=== PATIENT | female | born 1940 | race Caucasian/White ===

== ENCOUNTER 2017-03-15 14:00 | Emergency (ER) | payer MEDICARE ==
[~2017-03-15] VITALS: Ht 149.9 cm; Wt 72.0 kg
[~2017-03-15 14:00] MED LIST: ERGO2000 PO; GLIP10 PO; METF500T4 PO; NAPR-58 PO
[2017-03-15 14:22] LABS: GLUCOSE,POINT OF CARE 412 MG/DL (70-110)
[2017-03-15 14:51] LABS: BASOPHILS % (AUTO) 0.6 % (0.0-2.0); EOSINOPHILS % (AUTO) 1.1 % (1.0-6.0); HEMATOCRIT 36.7 % (36-46); HEMOGLOBIN 12.7 g/dL (12.0-16.0); LYMPHOCYTES # (AUTO) 1.3 K/uL (1.0-4.8); LYMPHOCYTES % (AUTO) 22.5 % (22.0-44.0); MEAN CORPUSCULAR HEMOGLOBIN 31.9 pg (26.0-34.0); MEAN CORPUSCULAR HGB CONC 34.5 G/dL (31.0-37.0); MEAN CORPUSCULAR VOLUME 93 fL (80-100); MONOCYTES # (AUTO) 0.3 K/uL (0.1-1.0); MONOCYTES % (AUTO) 5.4 % (2.0-9.0); NEUTROPHILS % (AUTO) 70.4 % (40.0-70.0); PLATELET COUNT (AUTO) 122 K/uL (150-450); RED BLOOD CELL COUNT(AUTO) 3.96 MIL/uL (4.00-5.20); RED CELL DISTRIBUTION WIDTH 13.8 % (11.5-14.5); WHITE BLOOD COUNT (AUTO) 5.7 K/uL (4.5-11.0)
[2017-03-15 15:00] LABS: CALCIUM, TOTAL 8.5 mg/dL (8.8-10.5); CREATININE 1.03 mg/dL (0.60-1.30); POTASSIUM 4.3 mmol/L (3.5-5.1)
[2017-03-15 15:05] LABS: ALBUMIN 3.2 g/dL (3.4-5.0); BILIRUBIN,TOTAL 0.4 mg/dL (0.1-1.0); TOTAL PROTEIN, SERUM 7.2 g/dL (6.4-8.2)
[2017-03-15] MEDS ORDERED: SODIUM CHLORIDE 0.9% 1,000 ML IV ONE (15:15)
[2017-03-15 15:20] VITALS: BP 148/55
[2017-03-15] MEDS ORDERED: ACETAMINOPHEN 500 MG TABLET PO ONE (16:00)
== END 2017-03-15 16:16 | disposition home or self-care (01) ==
LOC: EMS 14:02
DX: S62.101A Fracture of unspecified carpal bone, right wrist, initial encounter for closed fracture (principal); E11.9 Type 2 diabetes mellitus without complications; I10 Essential (primary) hypertension; W01.0XXA Fall on same level from slipping, tripping and stumbling without subsequent striking against object, initial encounter; Y93.89 Activity, other specified; Y92.89 Other specified places as the place of occurrence of the external cause; Y99.8 Other external cause status
CPT/HCPCS: 82962; 99284; 99285

== ENCOUNTER 2022-07-26 11:06 | Emergency (ER) | payer MEDICARE ==
[~2022-07-26] VITALS: Ht 147.3 cm; Wt 63.6 kg
[~2022-07-26 11:06] MED LIST changes: -ERGO2000 PO; -GLIP10 PO; +METF-1211 PO; -METF500T4 PO; -NAPR-58 PO
[2022-07-26 11:28] LABS: COVID AG,FIA SOURCE NASAL SWAB
[2022-07-26 11:56] LABS: INFLUENZA TYPE A NEGATIVE FOR TYPE A (NEGATIVE); INFLUENZA TYPE B NEGATIVE FOR TYPE B (NEGATIVE)
[2022-07-26 11:57] VITALS: BP 164/81
[2022-07-26 12:21] LABS: BASOPHILS % (AUTO) 0.4 % (0.0-2.0); HEMATOCRIT 38.7 % (36-46); HEMOGLOBIN 12.8 g/dL (12.0-16.0); LYMPHOCYTES # (AUTO) 1.1 K/uL (1.0-4.8); LYMPHOCYTES % (AUTO) 19.8 % (22.0-44.0); MEAN CORPUSCULAR HEMOGLOBIN 31.4 pg (26.0-34.0); MEAN CORPUSCULAR HGB CONC 33.2 G/dL (31.0-37.0); MEAN CORPUSCULAR VOLUME 95 fL (80-100); MONOCYTES # (AUTO) 0.5 K/uL (0.1-1.0); MONOCYTES % (AUTO) 8.1 % (2.0-9.0); NEUTROPHILS # (AUTO) 3.9 K/uL (1.8-7.7); NEUTROPHILS % (AUTO) 69.7 % (40.0-70.0); PLATELET COUNT (AUTO) 132 K/uL (150-450); RED BLOOD CELL COUNT(AUTO) 4.09 MIL/uL (4.00-5.20); RED CELL DISTRIBUTION WIDTH 13.8 % (11.5-14.5)
[2022-07-26 12:28] LABS: CALCIUM, TOTAL 9.1 mg/dL (8.8-10.5); CREATININE 1.39 mg/dL (0.60-1.30); POTASSIUM 5.8 mmol/L (3.5-5.1)
[2022-07-26 12:33] LABS: ALBUMIN 3.5 g/dL (3.4-5.0); BILIRUBIN,TOTAL 0.3 mg/dL (0.1-1.0)
[2022-07-26] MEDS ORDERED: AZIT250T9 PO (13:00)
== END 2022-07-26 13:12 | disposition home or self-care (01) ==
LOC: EMS 11:12
DX: J40 Bronchitis, not specified as acute or chronic (principal); I10 Essential (primary) hypertension; Z90.710 Acquired absence of both cervix and uterus; Z20.822 Contact with and (suspected) exposure to COVID-19
CPT/HCPCS: 71046; 80053; 85025; 87804; 99283; 36415-L1; 36415-TC

== ENCOUNTER 2022-10-13 12:03 | Emergency (ER) | payer MEDICARE ==
[~2022-10-13] VITALS: Ht 157.5 cm; Wt 81.8 kg
[2022-10-13 12:14] VITALS: BP 176/78
[2022-10-13 12:33] LABS: COVID AG,FIA SOURCE NASAL SWAB
[2022-10-13 12:54] LABS: BASOPHILS % (AUTO) 0.6 % (0.0-2.0); EOSINOPHILS % (AUTO) 1.8 % (1.0-6.0); HEMATOCRIT 38.7 % (36-46); HEMOGLOBIN 13.1 g/dL (12.0-16.0); LYMPHOCYTES # (AUTO) 1.1 K/uL (1.0-4.8); MEAN CORPUSCULAR HEMOGLOBIN 32.2 pg (26.0-34.0); MEAN CORPUSCULAR HGB CONC 33.9 G/dL (31.0-37.0); MEAN CORPUSCULAR VOLUME 95 fL (80-100); MONOCYTES # (AUTO) 0.4 K/uL (0.1-1.0); MONOCYTES % (AUTO) 5.6 % (2.0-9.0); PLATELET COUNT (AUTO) 133 K/uL (150-450); RED BLOOD CELL COUNT(AUTO) 4.09 MIL/uL (4.00-5.20); RED CELL DISTRIBUTION WIDTH 13.5 % (11.5-14.5)
[2022-10-13 13:07] LABS: CALCIUM, TOTAL 9.4 mg/dL (8.8-10.5); CREATININE 1.41 mg/dL (0.60-1.30); POTASSIUM 4.8 mmol/L (3.5-5.1)
[2022-10-13 13:12] LABS: INFLUENZA TYPE A NEGATIVE FOR TYPE A (NEGATIVE); INFLUENZA TYPE B NEGATIVE FOR TYPE B (NEGATIVE)
[2022-10-13 13:14] LABS: RAPID GROUP A STREP NEGATIVE (NEGATIVE)
[2022-10-13] MEDS ORDERED: BENZONATATE 100 MG CAPSULE PO ONE (13:30)
[2022-10-13 13:32] LABS: ALBUMIN 3.6 g/dL (3.4-5.0); BILIRUBIN,TOTAL 0.4 mg/dL (0.1-1.0); TOTAL PROTEIN, SERUM 8.1 g/dL (6.4-8.2)
[2022-10-13] MEDS ORDERED: BENZ-227 PO (13:41)
== END 2022-10-13 13:55 | disposition home or self-care (01) ==
LOC: EMS 12:03
DX: R05.9 Cough, unspecified (principal); Z20.822 Contact with and (suspected) exposure to COVID-19
CPT/HCPCS: 71045; 80053; 82550; 83880; 84484; 85025; 87430; 87804; 93005; 99284; 36415-L1; 36415-TC

== ENCOUNTER 2023-11-08 09:59 | Emergency (ER) | payer MEDICARE ==
[~2023-11-08] VITALS: Ht 149.9 cm; Wt 47.7 kg
[~2023-11-08 09:59] MED LIST changes: +BENZ-227 PO
[2023-11-08 10:08] VITALS: TEMP 97.8
[2023-11-08 10:59] LABS: CALCIUM, TOTAL 8.7 mg/dL (8.8-10.5); CREATININE 1.39 mg/dL (0.60-1.30)
[2023-11-08 11:04] LABS: HEMATOCRIT 39.3 % (36-46); HEMOGLOBIN 13.1 g/dL (12.0-16.0); LYMPHOCYTES # (AUTO) 1.6 K/uL (1.0-4.8); LYMPHOCYTES % (AUTO) 31.5 % (22.0-44.0); MEAN CORPUSCULAR HEMOGLOBIN 31.4 pg (26.0-34.0); MEAN CORPUSCULAR HGB CONC 33.3 G/dL (31.0-37.0); MEAN CORPUSCULAR VOLUME 94 fL (80-100); MONOCYTES # (AUTO) 0.3 K/uL (0.1-1.0); MONOCYTES % (AUTO) 5.1 % (2.0-9.0); NEUTROPHILS # (AUTO) 3.1 K/uL (1.8-7.7); NEUTROPHILS % (AUTO) 60.4 % (40.0-70.0); PLATELET COUNT (AUTO) 132 K/uL (150-450); RED BLOOD CELL COUNT(AUTO) 4.17 MIL/uL (4.00-5.20); RED CELL DISTRIBUTION WIDTH 13.8 % (11.5-14.5); WHITE BLOOD COUNT (AUTO) 5.2 K/uL (4.5-11.0)
[2023-11-08 11:05] LABS: BILIRUBIN,TOTAL 0.6 mg/dL (0.1-1.0); TOTAL PROTEIN, SERUM 7.4 g/dL (6.4-8.2)
[2023-11-08 11:06] LABS: TROPONIN I-HIGH SENSITIVITY 16 ng/L (<51)
[2023-11-08 11:06] LABS: GLUCOMETER DEV NAME(LOC) ERT.5; GLUCOSE,POINT OF CARE 253 MG/DL (70-110)
[2023-11-08 13:35] LABS: COVID AG,FIA SOURCE NASAL SWAB
[2023-11-08 13:58] LABS: SARS-COV2 (COVID) ANTIGEN,FIA Negative (Negative)
[2023-11-08 14:01] LABS: INFLUENZA TYPE A NEGATIVE FOR TYPE A (NEGATIVE); INFLUENZA TYPE B NEGATIVE FOR TYPE B (NEGATIVE)
[2023-11-08 14:45] VITALS: BP 135/90; PULSE 71; RESP 16
[2023-11-08 14:57] LABS: APPEARANCE,URINE CLEAR (CLEAR); BILIRUBIN,URINE NEGATIVE (NEGATIVE); COLOR,URINE LIGHT YELLOW (YELLOW); GLUCOSE, URINE (UA) >=1000 mg/dL (NEGATIVE); KETONES,URINE NEGATIVE (NEGATIVE); LEUKOCYTE ESTERASE ,URINE NEGATIVE (NEGATIVE); NITRATE,URINE NEGATIVE (NEGATIVE); OCCULT BLOOD,URINE NEGATIVE (NEGATIVE); PH,URINE 5.5 (5.0-8.0); PROTEIN,URINE 100-200,SEE CONFIRM mg/dL (NEGATIVE); SPECIFIC GRAVITIY, URINE 1.013 (1.003-1.030); UROBILINOGEN,URINE <=1.0 mg/dL (<=1.0)
[2023-11-08 15:57] LABS: SULFOSALICYLIC ACID,URINE 3+ (Negative)
[2023-11-08 15:59] LABS: RBC,URINE None Seen /HPF (0-2); WBC,URINE None Seen /HPF (0-5)
[2023-11-08 16:00] LABS: BACTERIA,URINE None Seen /HPF (None Seen)
== END 2023-11-08 15:01 | disposition home or self-care (01) ==
LOC: EMS 09:59
DX: R53.1 Weakness (principal); Z20.822 Contact with and (suspected) exposure to COVID-19
CPT/HCPCS: 80053; 81001; 81002; 82962; 83880; 84484; 85025; 87804; 93005; 99283

== ENCOUNTER 2024-02-14 10:00 | Emergency (ER) | payer MEDICARE ==
[~2024-02-14] VITALS: Ht 154.9 cm; Wt 65.9 kg
[2024-02-14 10:04] VITALS: TEMP 97.7
[2024-02-14 10:55] LABS: BASOPHILS % (AUTO) 0.8 % (0.0-2.0); EOSINOPHILS % (AUTO) 2.9 % (1.0-6.0); HEMOGLOBIN 12.6 g/dL (12.0-16.0); LYMPHOCYTES # (AUTO) 1.2 K/uL (1.0-4.8); LYMPHOCYTES % (AUTO) 17.5 % (22.0-44.0); MEAN CORPUSCULAR HEMOGLOBIN 31.1 pg (26.0-34.0); MEAN CORPUSCULAR VOLUME 94 fL (80-100); MONOCYTES # (AUTO) 0.4 K/uL (0.1-1.0); MONOCYTES % (AUTO) 5.5 % (2.0-9.0); NEUTROPHILS # (AUTO) 5.1 K/uL (1.8-7.7); NEUTROPHILS % (AUTO) 73.3 % (40.0-70.0); PLATELET COUNT (AUTO) 164 K/uL (150-450); RED BLOOD CELL COUNT(AUTO) 4.04 MIL/uL (4.00-5.20)
[2024-02-14 11:06] LABS: CALCIUM, TOTAL 8.7 mg/dL (8.8-10.5); CREATININE 1.37 mg/dL (0.60-1.30); POTASSIUM 4.3 mmol/L (3.5-5.1)
[2024-02-14 11:13] LABS: BILIRUBIN,TOTAL 0.4 mg/dL (0.1-1.0); MAGNESIUM 1.9 mg/dL (1.80-2.40); TOTAL PROTEIN, SERUM 7.2 g/dL (6.4-8.2)
[2024-02-14 12:21] LABS: APPEARANCE,URINE HAZY (CLEAR); BILIRUBIN,URINE NEGATIVE (NEGATIVE); COLOR,URINE YELLOW (YELLOW); GLUCOSE, URINE (UA) >=1000 mg/dL (NEGATIVE); KETONES,URINE NEGATIVE (NEGATIVE); LEUKOCYTE ESTERASE ,URINE LARGE (NEGATIVE); NITRATE,URINE NEGATIVE (NEGATIVE); OCCULT BLOOD,URINE LARGE (NEGATIVE); PROTEIN,URINE 300-600,SEE CONFIRM mg/dL (NEGATIVE); SPECIFIC GRAVITIY, URINE 1.018 (1.003-1.030); UROBILINOGEN,URINE <=1.0 mg/dL (<=1.0)
[2024-02-14 12:33] LABS: BACTERIA,URINE Many /HPF (None Seen); RBC,URINE 51-100 /HPF (0-2); SULFOSALICYLIC ACID,URINE 3+ (Negative); WBC,URINE >100 /HPF (0-5)
[2024-02-14 12:34] LABS: YEAST,URINE Moderate /HPF (None Seen)
[2024-02-14] MEDS ORDERED: CEPH-558 PO (12:43)
[2024-02-14] MEDS: CEPHALEXIN MONOHYDRATE 500 MG CAPSULE PO ONE (13:16)
[2024-02-14] MEDS: FLUCONAZOLE 150 MG TABLET PO ONE (13:16)
[2024-02-14 13:21] VITALS: BP 160/90; PULSE 82; RESP 18
== END 2024-02-14 13:23 | disposition home or self-care (01) ==
LOC: EMS 10:06
DX: N39.0 Urinary tract infection, site not specified (principal)
CPT/HCPCS: 80053; 81001; 81002; 83735; 85025; 87086; 87186; 99283

== ENCOUNTER 2024-09-22 13:59 | Emergency (ER) | payer MEDICARE, OTHER ==
[~2024-09-22] VITALS: Ht 149.9 cm; Wt 56.8 kg
[~2024-09-22 13:59] MED LIST changes: +AMLO-257 PO; -BENZ-227 PO; +INSLAN SQ; -METF-1211 PO
[2024-09-22 14:05] VITALS: BP 149/64; PULSE 74; RESP 18; TEMP 98.4; O2SAT 98
[2024-09-22] MEDS: IBUPROFEN 200 MG TABLET PO ONE (16:11)
[2024-09-22] MEDS: ACETAMINOPHEN/CODEINE 300-30 MG TABLET PO ONE (16:12)
[2024-09-22] MEDS ORDERED: ACET-2080 PO (18:10)
[2024-09-22] MEDS ORDERED: IBUP-45 PO (18:10)
== END 2024-09-22 18:22 | disposition home or self-care (01) ==
LOC: EMS 14:04
DX: S43.201A Unspecified subluxation of right sternoclavicular joint, initial encounter (principal); S40.011A Contusion of right shoulder, initial encounter; M19.011 Primary osteoarthritis, right shoulder; E11.9 Type 2 diabetes mellitus without complications; Z79.4 Long term (current) use of insulin; Z79.899 Other long term (current) drug therapy; W01.0XXA Fall on same level from slipping, tripping and stumbling without subsequent striking against object, initial encounter; Y93.89 Activity, other specified; Y92.89 Other specified places as the place of occurrence of the external cause; Y99.8 Other external cause status
CPT/HCPCS: 29240; 82962; 99283

== ENCOUNTER 2025-05-12 17:25 | Emergency (ER) | payer MEDICARE, OTHER ==
[~2025-05-12] VITALS: Ht 149.9 cm; Wt 63.6 kg
[~2025-05-12 17:25] MED LIST changes: +ACET-2080 PO; +IBUP-45 PO
[2025-05-12 17:29] VITALS: TEMP 97.9
[2025-05-12] MEDS ORDERED: ATOR10TA PO (17:36)
[2025-05-12] MEDS ORDERED: SERT-158 PO (17:36)
[2025-05-12] MEDS ORDERED: LISI-892 PO (17:36)
[2025-05-12 17:55] LABS: PLATELET COUNT (AUTO) 160 K/uL (150-450); RED BLOOD CELL COUNT(AUTO) 3.75 MIL/uL (4.00-5.20); RED CELL DISTRIBUTION WIDTH 15.1 % (11.5-14.5); WHITE BLOOD COUNT (AUTO) 6.0 K/uL (4.5-11.0)
[2025-05-12 18:05] LABS: CALCIUM, TOTAL 8.1 mg/dL (8.8-10.5); CREATININE 1.45 mg/dL (0.60-1.30); GLOMERULAR FILTR. RATE CALC 34.0 mL/min (>60); GLUCOSE,RANDOM 198.0 mg/dL (70-110); SODIUM SERUM 142.0 mmol/L (136-145); UREA NITROGEN, BLOOD 36.0 mg/dL (7-18)
[2025-05-12 18:10] VITALS: BP 163/70; PULSE 71; RESP 17; O2SAT 98
[2025-05-12 20:11] LABS: APPEARANCE,URINE CLEAR (CLEAR); GLUCOSE, URINE (UA) TRACE mg/dL (NEGATIVE); LEUKOCYTE ESTERASE ,URINE SMALL (NEGATIVE); NITRATE,URINE POSITIVE (NEGATIVE); OCCULT BLOOD,URINE NEGATIVE (NEGATIVE); SPECIFIC GRAVITIY, URINE 1.011 (1.003-1.030)
== END 2025-05-12 20:51 | disposition home or self-care (01) ==
LOC: EMS 17:25
DX: R53.1 Weakness (principal); E11.9 Type 2 diabetes mellitus without complications; I10 Essential (primary) hypertension; Z79.4 Long term (current) use of insulin; Z79.899 Other long term (current) drug therapy
CPT/HCPCS: 80048; 81001; 82962; 85025; 99282